=== PATIENT | female | born 2000 | race African-American/Black ===

== ENCOUNTER 2021-10-17 17:49 | Emergency (ER) | payer SELFPAY ==
[~2021-10-17] VITALS: Ht 170.2 cm; Wt 136.1 kg
[2021-10-17 17:50] VITALS: BP_SYST 127
--- NOTE | 2021-10-17 17:53 | NUR ---
Patient to ER bed 04 to gown for evaluation. Side rails up.
[2021-10-17] MEDS ORDERED: NACL 0.9% 1,000 ML IV ONE (18:00)
--- NOTE | 2021-10-17 18:00 | NUR ---
Pt BIBA from outdoor event. Per family, pt was drinking and smoking unkn substance in vape pen then became unresponsive. Pt opens eyes only to deep stimulation and mouths words but does not speak audibly. VSS on classroom monitor. Pending UDS and IVF.
--- NOTE | 2021-10-17 18:30 | NUR ---
UA sent after [address] Diggs's orders.
--- NOTE | 2021-10-17 19:08 | NUR ---
Report given to Dariel BALLARD to assume care of patient
--- NOTE | 2021-10-17 19:30 | NUR ---
NS BOLUS ENDED.
--- NOTE | 2021-10-17 19:39 | NUR ---
PATIENT IN BED, ON [employer]. ABLE TO VERBALIZE NEED FOR BLANKET. UNABLE TO VERBALIZE ANYTHING ELSE AT THIS TIME. WAITING FOR RESULTS, WILL CONTINUE TO MONITOR.
[2021-10-17 19:46] LABS: BARBITURATE, URINE NEGATIVE (NEG <=200); BENZODIAZEPINE, URINE NEGATIVE (NEG <=150); CANNABINOID, URINE POSITIVE (NEG <=50); COCAINE, URINE NEGATIVE (NEG <=150); METHAMPHETAMINES SCREEN,URINE NEGATIVE (NEG <=500); OPIATE, URINE NEGATIVE (NEG <=100); PHENCYCLIDINE SCREEN,URINE NEGATIVE (NEG <=25); UR TRICYCLIC ANTIDEPRESSANTS NEGATIVE (NEG <=300); URINE AMPHETAMINE NEGATIVE (NEG <=500); URINE METHADONE NEGATIVE (NEG <=200); URINE OXYCODONE SCREEN NEGATIVE (NEG <=100); URINE PROPOXYPHENE SCREEN NEGATIVE (NEG <=300)
--- NOTE | 2021-10-17 20:02 | NUR ---
MOTHER AT BEDSIDE, UPDATED HER ON PLAN OF CARE AT THIS TIME. REQUESTING TO SPEAK TO DR. FERNANDEZ, DR. FERNANDEZ AWARE.
--- NOTE | 2021-10-17 20:39 | NUR ---
MOTHER JOSE F [phone] PLEASE CALL WITH ANY QUESTIONS/CHANGES IN PATIENT CONDITION OR UPDATES.
--- NOTE | 2021-10-17 23:23 | NUR ---
Patient tolerated po intake. Mother notified by phone call.
[2021-10-18 00:12] VITALS: BP_SYST 117
--- NOTE | 2021-10-18 00:12 | NUR ---
Patient given written and verbal discharge instructions and verbalizes understanding. ER MD discussed with patient the results and treatment provided. Patient in stable condition. ID arm band removed. IV catheter removed intact and dressing applied, no active bleeding. No Rx of given. Patient educated on pain management and to follow up with PMD. Pain Scale 0/10. Opportunity for questions provided and answered. Medication side effect fact sheet provided.
== END 2021-10-18 00:12 | disposition home or self-care (01) ==
LOC: SED 17:49
DX: F12.129 Cannabis abuse with intoxication, unspecified (principal); R11.10 Vomiting, unspecified; Z79.899 Other long term (current) drug therapy
CPT/HCPCS: 36415; 80307; 96360; 99283; G0482; J7030